=== PATIENT | male | born 1980 | race Caucasian/White ===

== ENCOUNTER 2019-06-11 03:37 | Emergency (ER) | payer OTHER, SELFPAY ==
[~2019-06-11] VITALS: Ht 175.3 cm; Wt 136.4 kg
[2019-06-11] MEDS ORDERED: GABA-843 PO (06:43)
[2019-06-11 06:47] VITALS: BP 141/78
== END 2019-06-11 06:50 | disposition home or self-care (01) ==
LOC: M ED 03:37
DX: G57.11 Meralgia paresthetica, right lower limb (principal); F17.210 Nicotine dependence, cigarettes, uncomplicated

== ENCOUNTER 2021-06-04 15:42 | Emergency (ER) | payer OTHER, SELFPAY ==
[~2021-06-04] VITALS: Ht 175.3 cm; Wt 120.5 kg
[~2021-06-04 15:42] MED LIST: GABA-282 PO
[2021-06-04] MEDS ORDERED: NABU-71 (15:50)
[2021-06-04] MEDS ORDERED: NS 1,000 ML IV ONE (17:35)
[2021-06-04] MEDS ORDERED: MORPHINE 4 MG/ML 1ML VIAL/SYRINGE (J2270) IV ONE (17:35)
[2021-06-04 17:40] LABS: BASO # 0.1 10^3/uL (0.0-0.2); BASO % 0.4 % (0.0-1.0); EOS # 0.2 10^3/uL (0.0-0.5); EOS % 1.9 % (0.0-3.0); HEMATOCRIT 49.3 % (42.0-52.0); HEMOGLOBIN 17.3 g/dl (13.5-17.5); LYMPH % 23.6 % (24.0-44.0); MEAN CORPUSCULAR HEMOGLOBIN 31.1 pg (27.0-33.0); MEAN CORPUSCULAR HGB CONC 35.1 g/dl (32.0-36.5); MEAN CORPUSCULAR VOLUME 88.7 fl (80.0-96.0); MONO # 0.8 10^3/uL (0.0-0.8); MONO % 6.1 % (2.0-8.0); NEUTROPHILS # 8.6 10^3/uL (1.5-8.5); NEUTROPHILS % 67.8 % (36.0-66.0); PLATELET COUNT, AUTOMATED 296 10^3/uL (150-450); RED BLOOD COUNT 5.56 10^6/uL (4.30-6.10); WHITE BLOOD COUNT 12.8 10^3/uL (4.0-10.0)
[2021-06-04 17:42] LABS: APPEARANCE, URINE HAZY (CLEAR); BACTERIA, URINE AUTO NEGATIVE (NEGATIVE); BILIRUBIN, URINE AUTO 1+ (NEGATIVE); BLOOD, URINE BLOOD NEGATIVE (NEGATIVE); COLOR, URINE AMBER (YELLOW); GLUCOSE, URINE (UA) AUTO NEGATIVE (NEGATIVE); KETONE, URINE AUTO TRACE mg/dL (NEGATIVE); LEUKOCYTE ESTERASE, URINE AUTO NEGATIVE (NEGATIVE); MUCUS, URINE SMALL (NEGATIVE); NITRITE, URINE AUTO NEGATIVE (NEGATIVE); PROTEIN, URINE AUTO 1+ mg/dL (NEGATIVE); RBC, URINE AUTO 2 /HPF (0-3); SPECIFIC GRAVITY URINE AUTO 1.033 (1.002-1.035); SQUAMOUS EPITHELIAL CELL UR AU 0 /HPF (0-6); WBC, URINE AUTO 1 /HPF (0-3)
[2021-06-04 18:14] LABS: ALBUMIN 4.1 GM/DL (3.2-5.2); ALT/SGPT 36 U/L (12-78); BILIRUBIN,DIRECT 0.2 MG/DL (0.0-0.2); BILIRUBIN,TOTAL 0.7 MG/DL (0.2-1.0); BLOOD UREA NITROGEN 11 MG/DL (7-18); CALCIUM LEVEL 9.7 MG/DL (8.5-10.1); CARBON DIOXIDE LEVEL 29 MEQ/L (21-32); CHLORIDE LEVEL 102 MEQ/L (98-107); CREATININE FOR GFR 0.91 MG/DL (0.70-1.30); GLOMERULAR FILTRATION RATE > 60.0 (>60); GLUCOSE, FASTING 120 MG/DL (70-100); LIPASE 108 U/L (73-393); POTASSIUM SERUM 4.4 MEQ/L (3.5-5.1); SODIUM LEVEL 138 MEQ/L (136-145); TOTAL PROTEIN 7.3 GM/DL (6.4-8.2)
[2021-06-04] MEDS ORDERED: ISOVUE-370 76% 100ML VIAL As Ordered ONE (18:20)
[2021-06-04] MEDS ORDERED: ULTR50TA8 PO (20:58)
[2021-06-04 22:01] VITALS: BP 143/91
== END 2021-06-04 22:05 | disposition home or self-care (01) ==
LOC: M ED 15:42
DX: M54.6 Pain in thoracic spine (principal); F17.200 Nicotine dependence, unspecified, uncomplicated; D32.1 Benign neoplasm of spinal meninges
CPT/HCPCS: 72128; 74177; 80048; 80076; 81001; 83690; 85025; 96361; 96374; 99284; J2270; Q9967

== ENCOUNTER → 2021-09-28 | Outpatient (CLI) | payer OTHER ==
[~2021-09-28] MED LIST changes: +NABU-71; +ULTR50TA8 PO
== END ==
LOC: M RAD 07:05
PROVIDERS: ATTEND Physician Assistant
DX: S29.012D Strain of muscle and tendon of back wall of thorax, subsequent encounter (principal); X58.XXXD Exposure to other specified factors, subsequent encounter

== ENCOUNTER 2021-12-14 10:28 | Emergency (ER) | payer OTHER ==
[~2021-12-14] VITALS: Ht 175.3 cm; Wt 130.1 kg
[2021-12-14] MEDS ORDERED: GABA-282 (10:40)
[2021-12-14 12:13] LABS: BASO # 0.1 10^3/uL (0.0-0.2); BASO % 0.6 % (0.0-1.0); EOS # 0.3 10^3/uL (0.0-0.5); EOS % 1.9 % (0.0-3.0); HEMATOCRIT 47.8 % (42.0-52.0); HEMOGLOBIN 16.7 g/dl (13.5-17.5); LYMPH # 3.3 10^3/uL (1.5-5.0); LYMPH % 23.5 % (24.0-44.0); MEAN CORPUSCULAR HGB CONC 34.9 g/dl (32.0-36.5); MEAN CORPUSCULAR VOLUME 88.7 fl (80.0-96.0); MONO # 1.1 10^3/uL (0.0-0.8); MONO % 7.4 % (2.0-8.0); NEUTROPHILS # 9.4 10^3/uL (1.5-8.5); NEUTROPHILS % 66.1 % (36.0-66.0); PLATELET COUNT, AUTOMATED 346 10^3/uL (150-450); RED BLOOD COUNT 5.39 10^6/uL (4.30-6.10); WHITE BLOOD COUNT 14.2 10^3/uL (4.0-10.0)
[2021-12-14 12:39] LABS: ALBUMIN 3.9 GM/DL (3.2-5.2); BILIRUBIN,DIRECT 0.2 MG/DL (0.0-0.2); BILIRUBIN,TOTAL 0.6 MG/DL (0.2-1.0); TOTAL PROTEIN 7.4 GM/DL (6.4-8.2)
[2021-12-14] MEDS ORDERED: NS 500 ML IV ONE (12:45)
[2021-12-14] MEDS ORDERED: ISOVUE-370 76% 100ML VIAL As Ordered ONE (13:13)
[2021-12-14 13:27] LABS: APPEARANCE, URINE HAZY (CLEAR); BACTERIA, URINE AUTO NEGATIVE (NEGATIVE); BILIRUBIN, URINE AUTO NEGATIVE (NEGATIVE); BLOOD, URINE BLOOD NEGATIVE (NEGATIVE); COLOR, URINE YELLOW (YELLOW); GLUCOSE, URINE (UA) AUTO NEGATIVE (NEGATIVE); KETONE, URINE AUTO TRACE mg/dL (NEGATIVE); LEUKOCYTE ESTERASE, URINE AUTO NEGATIVE (NEGATIVE); MUCUS, URINE SMALL (NEGATIVE); NITRITE, URINE AUTO NEGATIVE (NEGATIVE); PROTEIN, URINE AUTO 1+ mg/dL (NEGATIVE); RBC, URINE AUTO 1 /HPF (0-3); SPECIFIC GRAVITY URINE AUTO 1.031 (1.002-1.035); SQUAMOUS EPITHELIAL CELL UR AU 0 /HPF (0-6); WBC, URINE AUTO 1 /HPF (0-3)
[2021-12-14] MEDS ORDERED: KETOROLAC 30 MG/ML 1ML VIAL IV ONE (14:15)
[2021-12-14] MEDS ORDERED: CIPROFLOXACIN 500MG TABLET PO ONE (14:15)
[2021-12-14] MEDS ORDERED: metroNIDAZOLE (FLAGYL) 500MG TABLET PO ONE (14:15)
[2021-12-14] MEDS ORDERED: METR-265 PO (14:16)
[2021-12-14] MEDS ORDERED: CIPR-249 PO (14:16)
[2021-12-14 14:27] VITALS: BP 143/82
[2021-12-14] MEDS ORDERED: HYDR-3713 PO (15:28)
== END 2021-12-14 15:33 | disposition home or self-care (01) ==
LOC: M ED 10:28
DX: K57.92 Diverticulitis of intestine, part unspecified, without perforation or abscess without bleeding (principal); G89.29 Other chronic pain; M54.9 Dorsalgia, unspecified; F17.210 Nicotine dependence, cigarettes, uncomplicated
CPT/HCPCS: 74177; 76857; 76870; 80047; 80076; 81001; 83690; 83880; 85025; 93976; 96361; 96374; 99284; J1885; Q9967

== ENCOUNTER 2023-01-21 21:31 | Emergency (ER) | payer OTHER, SELFPAY ==
[~2023-01-21] VITALS: Ht 175.3 cm; Wt 134.6 kg
[~2023-01-21 21:31] MED LIST changes: +CIPR-249 PO; +GABA-282; +HYDR-3713 PO; +METR-265 PO
[2023-01-21] MEDS ORDERED: ACET300T47 PO (21:39)
[2023-01-21] MEDS ORDERED: LIDOCAINE 5% (LIDODERM) PATCH TD ONE (22:30)
[2023-01-21] MEDS ORDERED: KETOROLAC 60MG 2ML VIAL IM ONE (22:30)
[2023-01-21] MEDS ORDERED: diazePAM 5MG TABLET PO ONE (22:30)
[2023-01-22] MEDS ORDERED: METH-1165 PO (02:09)
[2023-01-22] MEDS ORDERED: NAPR-837 PO (02:09)
[2023-01-22 02:41] VITALS: BP 136/75
== END 2023-01-22 02:42 | disposition home or self-care (01) ==
LOC: M ED 21:31
DX: M54.50 Low back pain, unspecified (principal); F17.200 Nicotine dependence, unspecified, uncomplicated; Z79.1 Long term (current) use of non-steroidal anti-inflammatories (NSAID); Z79.899 Other long term (current) drug therapy
CPT/HCPCS: 96372; 99284; J1885

== ENCOUNTER → 2024-07-01 | Outpatient (REF) ==
[~2024-07-01] MED LIST changes: +ACET300T47 PO; +GABA-1172; +GABA-1172 PO; -GABA-282; -GABA-282 PO; +METH-1165 PO; +NAPR-837 PO
== END ==
LOC: M PLALAB 15:33
PROVIDERS: ATTEND Internal Medicine
DX: M54.9 Dorsalgia, unspecified (principal); M47.814 Spondylosis without myelopathy or radiculopathy, thoracic region